=== PATIENT | female | born 1945 | race Caucasian/White ===

== ENCOUNTER → 2019-10-18 | Outpatient (CLI) | payer MEDICARE ==
[2019-10-18 08:19] LABS: NEUTROPHILS # 3.5 # k/uL (1.4-7.7)
[2019-10-18 10:59] LABS: eGFR (Non-African) > 60
[2019-10-18 11:00] LABS: HDL 56 mg/dL (>40)
[2019-10-21 08:03] LABS: A1C 5.1 % (<5.7)
== END ==
LOC: LAB 07:20
PROVIDERS: ATTEND Family Medicine
DX: E03.9 Hypothyroidism, unspecified (principal); E78.5 Hyperlipidemia, unspecified; R35.0 Frequency of micturition
CPT/HCPCS: 80053; 80061; 83036; 84443; 85025